=== PATIENT | male | born 1995 | race Two or more races ===

== ENCOUNTER 2018-01-06 12:28 | Emergency (ER) | payer OTHER ==
[~2018-01-06] VITALS: Ht 167.6 cm; Wt 65.8 kg
[2018-01-06 12:28] VITALS: BP 142/95
== END 2018-01-06 12:55 ==
LOC: ER 12:29
DX: F99 Mental disorder, not otherwise specified (principal); F41.9 Anxiety disorder, unspecified
CPT/HCPCS: 99283; A4606; Z7610

== ENCOUNTER 2018-09-16 23:22 | Emergency (ER) | payer MEDICAID, OTHER ==
[~2018-09-16] VITALS: Ht 172.7 cm; Wt 72.6 kg
[2018-09-16 23:59] LABS: BASOPHILS # (AUTO) 0.1 /CMM (0.0-0.2); BASOPHILS % (AUTO) 0.7 % (0.0-2.0); EOSINOPHILS % (AUTO) 1.2 % (0.0-6.0); HEMATOCRIT 46 % (39-51); HEMOGLOBIN 15.6 g/dL (13.5-17.5); LYMPHOCYTES # (AUTO) 1.8 /CMM (0.8-4.8); LYMPHOCYTES % (AUTO) 25.6 % (20.0-44.0); MEAN CORPUSCULAR HGB CONC 34 g/dl (31.0-36.0); MEAN CORPUSCULAR VOLUME 88 fL (80-96); MONOCYTES # (AUTO) 0.4 /CMM (0.1-1.30); MONOCYTES % (AUTO) 5.3 % (2.0-12.0); NEUTROPHILS # (AUTO) 4.6 /CMM (1.8-8.9); NEUTROPHILS % (AUTO) 67.2 % (43.0-81.0); PLATELET COUNT (AUTO) 244 /CMM (150-450); RED BLOOD CELL COUNT(AUTO) 5.23 MIL/uL (4.5-6.0); WHITE BLOOD COUNT (AUTO) 6.9 K/uL (4.3-11.0)
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
[2018-09-17 00:18] LABS: ALANINE AMINOTRANSFERASE 41 U/L (12-78); ALBUMIN 3.7 g/dL (3.4-5.0); ALKALINE PHOSPHATASE 73 U/L (46-116); BILIRUBIN,TOTAL 0.3 mg/dL (0.2-1.0); CALCIUM, SERUM 8.5 mg/dL (8.5-10.1); CARBON DIOXIDE 33 mmol/L (21-32); CHLORIDE 105 mmol/L (98-107); CREATININE 1.1 mg/dL (0.6-1.3); GLUCOSE 108 mg/dL (74-106); POTASSIUM 3.7 mmol/L (3.5-5.1); SODIUM SERUM 142 mmol/L (136-145); TOTAL PROTEIN, SERUM 6.7 g/dL (6.4-8.2); UREA NITROGEN, BLOOD 15 mg/dL (7-18)
[2018-09-17 00:22] LABS: ACETAMINOPHEN 0 ug/ml (10-30); ALCOHOL, BLOOD < 3 mg/dL (0-0); SALICYLATE 2.7 mg/dL (2.8-20.0)
[2018-09-17] MEDS ORDERED: LORAZEPAM INJ 2 MG/ML VIAL IM ONE (00:30)
[2018-09-17] MEDS ORDERED: HALOPERIDOL LACTATE INJ 5 MG/ML VIAL IM ONE (00:30)
[2018-09-17 00:39] LABS: APPEARANCE,URINE Clear (CLEAR); BILIRUBIN,URINE SMALL (NEGATIVE); BLOOD, URINE Negative Ery/uL (NEGATIVE); COLOR,URINE Yellow (YELLOW); KETONES,URINE 15 (NEGATIVE); LEUKOCYTE ESTERASE ,URINE Negative (NEGATIVE); NITRITE, URINE Negative (NEGATIVE); PROTEIN,URINE 100 mg/dl (NEGATIVE); UGLUCOSE Negative (NEGATIVE)
--- NOTE | 2018-09-17 00:46 | NUR ---
CALLED [facility]. ETA 60 MIN
[2018-09-17] MEDS ORDERED: HALOPERIDOL LACTATE INJ 5 MG/ML VIAL ONE (00:53)
[2018-09-17] MEDS ORDERED: LORAZEPAM INJ 2 MG/ML VIAL ONE (00:54)
[2018-09-17 01:13] LABS: ASPARTATE AMINOTRANSFERASE 22 U/L (15-37)
--- NOTE | 2018-09-17 01:15 | NUR ---
Patient is resting comfortably in bed with eyes closed. Easily aroused. VSS
[2018-09-17 01:16] LABS: BACTERIA,URINE None seen /HPF (None Seen); RBC,URINE 0-2 /HPF (0-2); SQUAMOUS EPITHELIAL CELL,UR Few /HPF (None Seen); WBC,URINE 0-2 /HPF (0-3)
[2018-09-17 01:18] LABS: CALCIUM OXALATE CRYSTALS,UR Moderate /HPF (None Seen)
--- NOTE | 2018-09-17 03:03 | NUR ---
Patient is resting comfortably in bed with eyes closed. Easily aroused. VSS
--- NOTE | 2018-09-17 04:15 | NUR ---
PT AMBULATED TO RESTROOM WITH STEADY GAIT NOTED
--- NOTE | 2018-09-17 06:05 | NUR ---
PT AMBULATED TO ER BED 12 AND SLEPT IN WRONG ED BED. PT WAS INFORMED TO GO BACK TO HIS ROOM IN BED 15.
--- NOTE | 2018-09-17 06:24 | NUR ---
PT OPENS HIS EYES TO TACTILE STIMULI. PT NOTED TO BE SLEEPY AND REFUSING TO ANSWER QUESTIONS. PT BACK TO SLEEP AND REQUIRES MULTIPLE TRIES TO OPEN EYES FOR A FEW SECONDS. WILL CONTINUE TO MONITOR PT
--- NOTE | 2018-09-17 09:35 | NUR ---
PT ASLEEP ON BED, EASILY AROUSABLE, V/S STABLE.
--- NOTE | 2018-09-17 10:12 | NUR ---
[facility] CALLED FOR EVAL
--- NOTE | 2018-09-17 11:30 | NUR ---
[facility] AT BEDSIDE FOR EVAL.
--- NOTE | 2018-09-17 12:59 | NUR ---
Chel liu in ED - 09/17/18 at 1308 by CJ PT GOING TO [facility] FOR REPORT [phone] CANDICE CRUZ 1HR
[2018-09-17 13:45] VITALS: BP 120/76
--- NOTE | 2018-09-17 13:45 | NUR ---
Patient given written and verbal discharge instructions. Patient verbalizes understanding of instructions. Patient is ambulatory with steady gait. Refuses offer of alf placement. Patient given list of available shelters in surrounding area.
== END 2018-09-17 13:47 | disposition home or self-care (01) ==
LOC: ER 23:24
DX: F29 Unspecified psychosis not due to a substance or known physiological condition (principal); F15.20 Other stimulant dependence, uncomplicated; F17.200 Nicotine dependence, unspecified, uncomplicated; R45.1 Restlessness and agitation
CPT/HCPCS: 36415; 80048; 80076; 80305; 80307; 80329; 81001; 85025; 96372 ×2; 99285; G0480; J1630; J2060; 81000-TC